=== PATIENT | male | born 1995 ===

== ENCOUNTER 2024-07-28 12:57 | Emergency (ER) | payer OTHER ==
[~2024-07-28] VITALS: Ht 177.8 cm; Wt 61.2 kg
[2024-07-28] MEDS ORDERED: CEPH500 PO (15:29)
== END 2024-07-28 15:48 | disposition home or self-care (01) ==
LOC: ER 12:57
DX: L97.529 Non-pressure chronic ulcer of other part of left foot with unspecified severity (principal); L08.9 Local infection of the skin and subcutaneous tissue, unspecified; Z79.899 Other long term (current) drug therapy
CPT/HCPCS: 99282